=== PATIENT | female | born 1975 | race Caucasian/White ===

== ENCOUNTER 2018-03-23 19:42 | Emergency (ER) | payer OTHER ==
[~2018-03-23] VITALS: Ht 165.1 cm; Wt 104.3 kg
[2018-03-23] MEDS ORDERED: IBUPROFEN 800800 M1 PO ×3 (19:52→21:05)
[2018-03-23] MEDS ORDERED: HYDROCODONE-AP1 EAC6 PO ×2 (20:58→21:05)
[2018-03-23 21:27] VITALS: BP 156/75
== END 2018-03-23 21:28 | disposition home or self-care (01) ==
LOC: M.ERS 19:42
DX: M25.571 Pain in right ankle and joints of right foot (principal); M25.561 Pain in right knee; E11.9 Type 2 diabetes mellitus without complications; J44.9 Chronic obstructive pulmonary disease, unspecified; F17.210 Nicotine dependence, cigarettes, uncomplicated; Z90.711 Acquired absence of uterus with remaining cervical stump; Z88.1 Allergy status to other antibiotic agents; Z88.6 Allergy status to analgesic agent